=== PATIENT | male | born 2005 | race Caucasian/White ===

== ENCOUNTER 2025-01-18 08:33 | Outpatient (AMB) | payer BC, SELFPAY ==
--- NOTE | 2025-01-18 08:34 | MHC.PC.OV ---
Vital Signs 01/18/25 08:41 Height 5 ft 10.2 in Weight 185 lb 2 oz BMI 26.4 BP 133/69 Blood Pressure Location Lt brachial Position Sitting Respiration 16 Pulse 75 Pulse Source Pulse Oximeter Temp 98.1 F Temp Source Temporal Artery Scan Pulse Oximetry (%) 96 Oxygen Delivery Method Room Air Intake Visit Reasons: Est Care Accompanied by: Self / Same As Patient Allergies No Known Allergies Allergy (Verified 01/18/25 08:35) Tobacco use date assessed: 01/18/25 Dental Screening Dental Screen Date: 01/18/25 Did you have a dental visit in the last 12 months?: Yes [facility] Medical History (Updated 01/18/25 @ 08:56 by Burak Harvey MD) Major depression in complete remission Bronchial asthma Family History (Updated 01/18/25 @ 08:40 by Mercedes Wu [facility]) Mother Diabetes Father No problems noted. Social History (Reviewed 01/18/25 @ 08:39 by Mercedes Wu [facility]) Housing: House Patient Tobacco Use Status: Never used Tobacco service: No Current occupational status: student Cognitive needs: No Hearing needs: No Vision needs: No Questionnaire PHQ-9 Over the last 2 weeks, how often have you been bothered by any of the following problems? 1. Little interest or pleasure in doing things: not at all 2. Feeling down, depressed, or hopeless: not at all 3. Trouble falling or staying asleep, or sleeping too much: not at all 4. Feeling tired or having little energy: not at all 5. Poor appetite or overeating: not at all 6. Feeling bad about yourself - or that you are a failure or have let yourself or your family down: not at all 7. Trouble concentrating on things, such as reading the newspaper or watching television: not at all 8. Moving or speaking so slowly that other people could have noticed. Or the opposite - being so fidgety or restless that you have been moving around a lot more than usual: not at all 9. Thoughts that you would be better off or of hurting yourself in some way: not at all Total score: 0 Source: Developed by Drs. Ralph Blanchard, Alejandra Gaytan, Maximiliano Aggarwal and colleagues, with an educational daisy from [employer]. Thrive Questionnaire Date Thrive assessed: 01/18/25 I am a: Patient What is your living situation today?: I have a steady place to live Within the past 12 months, did the food you bought not last and you didn't have the money to get more?: Never true Within the past 12 months, did you worry whether your food would run out before you got money to buy more?: Never true Do you have trouble paying for medicines?: No Do you have trouble getting transportation to medical appointments?: No Do you have trouble paying your heating and electricity bill?: No Do you have trouble taking care of your child, family member or friend?: No Do you have trouble with day-to-day activities such as bathing, preparing meals, shopping, managing finances, etc.?: No Are you currently unemployed and looking for a job?: No Are you interested in more education?: No Please select the resources that you would like help with: None THRIVE Score: 0 AUDIT C Alcohol Use Questionnaire (AUDIT-C) 1. How often do you have a drink containing alcohol?: Never Total Score: 0 FRANK-7 AMB Questionnaire FRANK-7 Date FRANK - 7 assessed: 01/18/25 Feeling nervous, anxious, or on edge: 0 = Not at all Not being able to stop or control worryin = Not at all Worrying too much about different things: 0 = Not at all Trouble relaxin = Not at all Being so restless that it is hard to sit still: 0 = Not at all Becoming easily annoyed or irritable: 0 = Not at all Feeling afraid as if something awful might happen: 0 = Not at all Total FRANK-7 score (0-4 normal; 5-9 mild; 10-14 moderate; 15-21 severe): 0 Source: Developed by Drs. Ralph Blanchard, Alejandra Gaytan, Maximiliano Aggarwal and colleagues, with an educational daisy from [employer]. Physical exam (Primary Care) Vital Signs: Last Vital Signs Temp 98.1 F 01/18/25 08:41 Pulse 75 01/18/25 08:41 Resp 16 01/18/25 08:41 BP 133/69 01/18/25 08:41 Pulse Ox 96 01/18/25 08:41 Oxygen Delivery Method Room Air 01/18/25 08:41 BMI result Body Mass Index 26.4 Tobacco/Smoking Status: Tobacco use Status Tobacco use date assessed 01/18/25 01/18/25 08:43 Patient Tobacco Use Status Never used Tobacco 01/18/25 08:43 PHQ-9: PHQ-9 Score PHQ-9: Total score 0 01/18/25 08:58 Thrive Assessment: Date of Thrive Assessment Date Thrive assessed 01/18/25 01/18/25 08:43 Office Procedures Flu Questionnaire Does the patient have a severe egg allergy?: No Does the patient have severe life threatening allergies?: No Does the patient have a fever or illness today?: No Has the patient ever had Guillain-[place] Syndrome?: No Has the patient ever had any past reaction to a flu shot?: No Immunizations Fluarix [id number] (PF) 45 mcg (15 mcg x 3)/0.5 mL IM syringe Performing Provider: Burak Harvey MD [facility] Administered by: MERCED Chamberlain on 01/18/25 08:58 Dose Route Admin Location Dispensed Lot Number Expiration Date NDC Physical Instructor 0.5 mL IM Left Deltoid 0.5 mL [id number] 10/18/25 [id number] Codingpeople VIS Given Date VIS Provided VIS Publication Date 01/18/25 Single Vaccine 24 Eligibility Eligibility Date Funding Source Not [facility] Eligible 01/18/25 Private Coding Level of Care Code New Pt Level 4 (95606) Complex EM visit Add On G2211 Diagnoses Major depression in complete remission F32.5 Bronchial asthma J45.909 Assessment & Plan Assessment & Plan (1) Major depression in complete remission: Code(s): F32.5 - Major depressive disorder, single episode, in full remission Category: Medical Plan: Continue current medication (2) Bronchial asthma: Code(s): J45.909 - Unspecified asthma, uncomplicated Category: Medical Plan: History of Present Illness - The patient is a 19-year-old male presenting with breathing difficulties. - Reports dyspnea on exertion, particularly when walking across campus, which was not previously problematic during athletic activities. - Denies significant wheezing but feels out of breath. - No prior history of asthma or inhaler use. - Currently on bupropion for anxiety, prescribed by Alison Joe. - Denies smoking or marijuana use; reports mild seasonal allergies. 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 - He has a history of being athletic, participating in [employer] - Denies use of tobacco or marijuana. Review of Systems - Respiratory: Reports dyspnea on exertion. Denies significant wheezing. - Allergic/Immunologic: Reports occasional mild seasonal allergies. Physical Exam General: Cooperative and healthy appearing Nutritional Appearance: Well nourished Orientation/consciousness: Patient oriented x3 Limitations: No limitations Head: Normal to inspection General: Appearance normal, both eyes and all related structures Neck: Normal visual inspection Chest: Normal palpation of entire chest wall Respiratory: Wheezing noted, possible asthma diagnosis. Chest X-ray and pulmonary function test recommended. ormal respiratory effort Neurology: Patient oriented x3 Results Plan - Perform a chest x-ray to evaluate heart size and exclude other conditions. - Conduct pulmonary function tests to confirm asthma diagnosis. - Initiate Symbicort treatment if asthma is confirmed, to be used as needed. - Schedule a follow-up in six weeks to discuss test outcomes and treatment progress. Discussion Notes I discussed with the patient the likelihood of asthma based on his symptoms and the need for further testing to confirm the diagnosis. We talked about the importance of a chest x-ray and pulmonary function tests to accurately diagnose the condition. I explained the potential use of Symbicort as a treatment option if asthma is confirmed. We also discussed scheduling a follow-up appointment in six weeks to review the results and adjust the treatment plan as necessary. Patient Instructions - Schedule and complete a chest x-ray and pulmonary function tests as soon as possible. - Use Symbicort as directed if asthma is confirmed. - Attend the follow-up appointment in six weeks to discuss test results and treatment. Orders: Orders XR chest 2V Today R05.9 - Cough, unspecified Liver Panel Today J45.909 - Unspecified asthma, uncomplicated Thyroid Stimulating Hormone Today J45.909 - Unspecified asthma, uncomplicated UA and rflx microscopic Today J45.909 - Unspecified asthma, uncomplicated Influenza [id number] Immunization Today Z23 - Encounter for immunization PFT pulmonary function test Today F32.5 - Major depressive disorder, single episode, in full remission, J45.909 - Unspecified asthma, uncomplicated Basic Metabolic Panel Today J45.909 - Unspecified asthma, uncomplicated Complete Blood Count no Diff Today J45.909 - Unspecified asthma, uncomplicated C Reactive Protein Today J45.909 - Unspecified asthma, uncomplicated Erythrocyte Sedimentation Rate Today J45.909 - Unspecified asthma, uncomplicated Medications: New budesonide-formoterol 80-4.5 mcg/actuation (Symbicort) 1 inh inhalation BID PRN 10.2 grams 1RF shortness of breath or wheezing
[2025-01-18 08:41] VITALS: BP 133/69; PULSE 75; RESP 16; TEMP 36.7; O2SAT 96; BMI 26.4
--- OUTSIDE RECORDS SUMMARY | 2025-01-18 08:51 | XMS_ITS | Encounter Summary ---
Author Organization [facility] Address [address] [place] [address] Phone Care Team Providers Care Foreign Language Teacher Name Role Phone Fercho Key MD Primary Care Provider [phone] Reason for Visit * Reason Comments Med Refill Encounter Details Date Type Department Care Team (Late st Contact Info) Description 10/26/2018 Refill [place] [place] [address] [place] [address] Qiun Jerry NP Anxiety Social History Tobacco Use Types Packs/Day Years Used Date Smoking Tobacco: Never Smokeless Tobacco: Never Comments:Never smoker Alcohol Use Standard Drinks/Week Comments No 0 (1 standard drink = 0.6 oz pur e alcohol) Sex and Gender Information Value Date Recorded Sex Assigned at Male 02/09/2020 9:55 AM EDT Legal Sex Male 5:23 PM EDT Gender Identity Male 02/09/2020 9:55 AM EDT Sexual Orientation Straight 02/09/2020 9: 55 AM EDT documented as of this encounter Plan of Treatment Not on file documented as of this encounter Visit Diagnoses Diagnosis Anxiety Anxiety state, unspecified documented in this encounter Care Teams Foreign Language Teacher Relationship Specialty Start Date End Date Fercho Key MD [address] [place] [address] PCP - General Pediatrics 10/24/20 documented as of this encounter
--- OUTSIDE RECORDS SUMMARY | 2025-01-18 08:51 | XMS_ITS | Encounter Summary ---
Author Organization [facility] Address [address] [place], [place] [id number] Phone Care Team Providers Care Non Destructive Testing Inspector Name Role Phone Fercho Key MD Primary Care Provider [phone] Encounter Details Date Type Department Care Team (Late st Contact Info) Description 05/14/2012 [place]ation [facility] [place] [address] [place] [address] Family Medicine, Physician [address] [place], [place] [phone] Social History Tobacco Use Types Packs/Day Years Used Date Smoking Tobacco: Never Assessed Sex and Gender Information Value Date Recorded Sex Assigned at Male 02/09/2020 9:55 AM EDT Legal Sex Male 5:23 PM EDT Gender Identity Male 02/09/2020 9:55 AM EDT Sexual Orientation Straight 02/09/2020 9: 55 AM EDT documented as of this encounter Plan of Treatment Not on file documented as of this encounter Visit Diagnoses Not on filedocumented in this encounter Care Teams Non Destructive Testing Inspector Relationship Specialty Start Date End Date Fercho Key MD [address] [place] [address] [place] [address] PCP - General Pediatrics 10/24/20 documented as of this encounter
--- OUTSIDE RECORDS SUMMARY | 2025-01-18 08:51 | XMS_ITS | Encounter Summary ---
Author Organization [facility] Address [address] [place], [place] [phone] Phone Care Team Providers Care Labor Economics Teacher Name Role Phone Fercho Key MD Primary Care Provider [phone] Encounter Details Date Type Department Care Team (Late st Contact Info) Description 12/17/2010 Documentation [facility] [place] Family Medicine [address] [place] [address] Family Medicine, Physician [address] [place], [place] [phone] Social History Tobacco Use Types Packs/Day Years [...] on filedocumented in this encounter Care Teams Labor Economics Teacher Relationship Specialty Start Date End Date Fercho Key MD [address] [place] [address] [place] [address] PCP - General Pediatrics 10/24/20 documented as of this encounter
--- OUTSIDE RECORDS SUMMARY | 2025-01-18 08:51 | XMS_ITS | Encounter Summary ---
Author Organization [facility] Address [address] [place], [place] [id number] Phone Care Team Providers Care Continuous Absorption Process Operator Name Role Phone Fercho Key MD Primary Care Provider [phone] Encounter Details Date Type Department Care Team (Late st Contact Info) Description 12/19/2009 Documentation [facility] [place] [address] [place] [address] Family Medicine, Physician [address] [place], [place] [phone] Social History Tobacco Use Types Packs/Day Years [...] on filedocumented in this encounter Care Teams Continuous Absorption Process Operator Relationship Specialty Start Date End Date Fercho Key MD [address] [place] [address] [place] [address] PCP - General Pediatrics 10/24/20 documented as of this encounter
--- OUTSIDE RECORDS SUMMARY | 2025-01-18 08:51 | XMS_ITS | Clinical Summary ---
Author Organization [facility] Address [address] [place], [place] [phone] Phone Care Team Providers Care Ssis Ssrs Developer Name Role Phone Fercho Key MD Primary Care Provider [phone] Allergies No known active allergies Medications buPROPion SR 150 MG 12 hr tablet Take 300 mg by mouth daily. 2 04/13/2019 Active Cetirizine HCl (ZYRTEC PO) Take 10 mg by mouth daily. Active clindamycin 1 % gelIndications: Acne vulgaris APPLY TO AFFECTED AREA AT NIGHT 30 g 3 05/16/2023 Active Active Problems Problem Noted Date Diagnosed Date Hip flexor tendonitis, unspecified laterality Overview (04/01/2023): 03/27/2023 [facility] for hip pain. Negative XRs. A/P hip flexor tendonitis - treatment options reviewed and plan for OTC meds and home flexor tendon stretching program with f/u in 1 month. Anxiety 01/27/2017 Overview (02/01/2020): 01/2020 [facility] med prescriber check in every 2 months Every 2 weeks for therapy Started on wellbutrrin - is on 300mg daily 01/2019 Sees a new med prescriber and therapist Doing well Weaning off medications Hopes to be off by the end of January Medication suggestions for new tx if needed was wellbutrin 01/2018 Ivette Meehan - in [place] manages medications, Still tweaking medications dosing and choices per mom, Still seeing Airam Hester for weekly therapy - 2 years established relationship, No new changes or issues with symptoms Assessment & Plan (02/09/2020 9:51 AM EDT): Continue in current treatment plan and follow up here if needed with additional concerns or questions. Assessment & Plan (01/29/2019 6:05 PM EDT): 01/2019 Beginning to taper medication. Patient reports improvement in sleep since starting taper. Continue to follow with therapist and med prescriber. Return to the office here with other changes or concerns. Assessment & Plan (01/28/2018 9:16 AM EDT): Continue in therapy and medication management. More worrisome mood or sleep changes to watch for reviewed, follow up with psych providers or here if needed with additional concerns. Immunizations Immunization Administration Dates Next Due COVID-19 Pfizer, bivalent, 12+ years 04/18/2022 COVID-19 Vaccine Moderna, se asonal, 12+ years 06/22/2024 DTaP / Hep B / IPV 2004,2004, 004 DTaP 5 02/08/2008,08/09/2005 H1N1 05/05/2009,02/06/2009 HPV Vaccine 9 Valent 01/29/2019,01/27/2018 Hep A, ped/adol 01/24/2015,01/25/2014 Hep B, ped/adol 2004 Hib (HbOC) 2004,2004,2004 Hib (PRP-T) 05/07/2005 IPV 02/08/2008 Influenza, injectable, MDCK, preservative free, quadrivalent 04/18/2023 Influenza, injectable, quadrivalent 02/02/2016 Influenza, injectable, quadr ivalent, preservative free 04/18/2022,02/01/2021,02/01/2020,01/29,01/27/2018,01/24/2017 Influenza, injectable, trivalent 009,02/08/2008,02/05/2007,02/20,05/07/2005 Influenza, injectable, triva lent, preservative free 06/22/2024 Influenza, intranasal, quadrivalent 01/24/2015,1 ,02/02/2013 Influenza, intranasal, trivalent 01/28/2012,01/20,01/17/2010 MMR 02/08/2008,01/29/2005 Meningococcal B Trumenba 06/10/2023,04/18/2022 Meningococcal Conj (Menactra) MCV4P 02/01/2020,1 Pneumococcal Conjugate 05/07/2005,2004,2004,04/05 Tdap 01/24/2015 Varicella 02/08/2008,01/29/2005 Family History Medical History Relation Name Comments Diabetes Mother Fernando Cisneros Thyroid disease Mother Fernando Cisneros No Known Problems Sister Aracelis Cisneros Relation Name Status Comments Father Shalonda Cisneros Alive Father: Ese jay and well Mother Fernando Cisneros Alive 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 Other No family histo ry of Strabismus, No family history of *Dental caries, No family history of ADD/ADHD, No family history of Seizure disorder, No family history of Developmental dislocation of hip, No family history of Obesity, Family history of Asthma, No family history of Diabetes mellitus, No family history of Deafness, No family history of *Heart Disease, No family history of Hyperlipidemia, No family history of Cancer, Family history of Migraines, No family history of *CVA/Stroke, No family history of *Sudden /SD under 55 Sister Aracelis Cisneros Alive Sister: Rehan andrae and well Social History Tobacco Use Types Packs/Day Years Used Date Smoking Tobacco: Never Smokeless Tobacco: Never Tobacco Cessation:Counseling Given: Yes Comments:Never smoker Alcohol Use Standard Drinks/Week Comments No 0 (1 standard drink = 0.6 oz pur e alcohol) Hunger/Food Answer Date Recorded In the last 12 months, did y ou or your family ever eat less than you felt you should because there wasn't enough money for food? No 06/10/2023 Stable Housing Answer Date Recorded Are you worried that in the next 2 months you may not have stable housing? No 06/10/2023 Transportation Concerns Answer Date Rec orded In the last 12 months, have you or your family ever had to go without healthcare because you didn't have a way to get there? No 06/10/2023 Hazards in Home Answer Date Recorded Think about the place you li ve. Do you have problems with any of the following? Pests (mice or roaches), mold, no/not working smoke detectors, water leaks, no window guards. No 2023 Financing Utilities Answer Date Recorde d In the last 12 months, has t he electric, gas, oil, or water company threatened to shut off your services in your home? No 06/10/2023 Safety at Home Answer Date Recorded Are you or your family worried about feeling saf e in your home? No 06/10/2023 Outside Support Answer Date Recorded Do you feel that you need mo re support from other people or programs to help you care for yourself or your family? No 06/10/2023 Understanding Health Concerns Answer Da te Recorded Do you need help understandi ng your or your child's healthcare needs (diagnosis, medications, plan, etc.)? No 06/10/2023 Financing Health Concerns Answer Date R ecorded In the last 12 months, was t here a time when your child needed to see a doctor or get medications or supplies but could not because of cost? No 06/10/2023 Missing School or Work Answer Date Nito rded Did you or your child miss s chool or work because of a health problem that could have been avoided? No 06/10/2023 Sex and Gender Information Value Date Recorded Sex Assigned at Male 02/09/2020 9:55 AM EDT Legal Sex Male 5:23 PM EDT Gender Identity Male 02/09/2020 9:55 AM EDT Sexual Orientation Straight 02/09/2020 9: 55 AM EDT Last Filed Vital Signs Vital Sign Reading Time Taken Comments Blood Pressure 120/75 06/22/2024 9:59 AM EST Pulse 74 06/22/2024 9:59 AM EST Temperature 36.4 C (97.5 F) 06/22/2024 9:59 AM EST Respiratory Rate - - Oxygen Saturation 98% 05/12/2017 9:22 AM EST Inhaled Oxygen Concentration - - Weight 75.2 kg (165 lb 12.8 oz) 06/22/2024 9:59 AM EST Height 177.8 cm (5' 10 ) 06/22/2024 9:59 AM EST Body Mass Index 23.79 06/22/2024 9:59 AM EST Plan of Treatment Health Maintenance Due Date Last Done Comments HIV Screening 01/22/2019 Hepatitis C Screening 01/22/2022 Influenza Vaccines (#1) 2024 06/23/19, 04/18/2023, 04/18/2022, Additional history exists COVID-19 Vaccine (7 - 2024-2 6 season) 2024 06/22/2024, 04/18/2023, 04/18/2022, Additional history exists DTaP,Tdap,and Td Vaccines (7 - Td or Tdap) 01/24/2025 01/24/2015, 02/08/2008, 08/09/2005, Additional history exists Hepatitis B Vaccines Completed 2004, 2004, 2004, Additional history exists HIB Vaccines Completed 05/07/2005, 10/2004, 2004, Additional history exists Pneumococcal Vaccine Completed 05/07/2005, 2004, 2004, Additional history exists IPV Vaccines Completed 02/08/2008, 10/2004, 2004, Additional history exists MMR Vaccines Completed 02/08/2008, 01/29/2005 Varicella Vaccines Completed 02/08/2008, 01/29/2005 Hepatitis A Vaccines Completed 01/24/2015, 01/26/20 14 HPV Vaccines Completed 01/29/2019, 01/27/2018 Meningococcal Vaccine Completed 02/01/2020, 015 Men B Vaccine Completed 06/10/2023, 04/18/2022 Insurance [facility] H[facility] Care Teams Ssis Ssrs Developer Relationship Specialty Start Date End Date Fercho Key MD [address] [facility] [place] [address] PCP - General Pediatrics 10/24/20
--- OUTSIDE RECORDS SUMMARY | 2025-01-18 08:51 | XMS_ITS | Encounter Summary ---
Author Organization [facility] Address [address] [place] [address] Phone Care Team Providers Care Membership Counselor Name Role Phone Fercho Key MD Primary Care Provider [phone] Encounter Details Date Type Department Care Team (Late st Contact Info) Description 12/05/2016 Conversion Encounter [facility] [place] [address] [place] [address] Social History Tobacco Use Types Packs/Day Years Used Date Smoking Tobacco: Never Comments:Never smoker Sex and Gender Information Value Date Recorded Sex Assigned at Male 02/09/2020 9:55 AM EDT Legal Sex Male 5:23 PM EDT Gender Identity Male 02/09/2020 9:55 AM EDT Sexual Orientation Straight 02/09/2020 9: 55 AM EDT documented as of this encounter Plan of Treatment Not on file documented as of this encounter Visit Diagnoses Not on filedocumented in this encounter Care Teams Membership Counselor Relationship Specialty Start Date End Date Fercho Key MD [address] [place] [address] PCP - General Pediatrics 10/24/20 documented as of this encounter
--- OUTSIDE RECORDS SUMMARY | 2025-01-18 08:51 | XMS_ITS | Encounter Summary ---
Author Organization [facility] Address [address] [place] [address] Phone Care Team Providers Care Front End Driver Name Role Phone Fercho Key MD Primary Care Provider [phone] Encounter Details Date Type Department Care Team (Late st Contact Info) Description 02/16/2010 Documentation [facility] [place] Family Medicine [address] [place] [address] Family Medicine, Physician [address] [place], [place] [phone] Social History Tobacco Use Types Packs/Day Years [...] on filedocumented in this encounter Care Teams Front End Driver Relationship Specialty Start Date End Date Fercho Key MD [address] [place] [address] [place] [address] PCP - General Pediatrics 10/24/20 documented as of this encounter
--- OUTSIDE RECORDS SUMMARY | 2025-01-18 08:51 | XMS_ITS | Encounter Summary ---
Author Organization [facility] Address [address] [place] [address] Phone Care Team Providers Care Front Office Secretary Name Role Phone Fercho Key MD Primary Care Provider [phone] Encounter Details Date Type Department Care Team (Late st Contact Info) Description 11/08/2016 Documentation [facility] [place] Family Medicine [address] [place] [address] Family Medicine, Physician [address] [place], [place] [phone] Social History Tobacco Use Types Packs/Day Years [...] filedocumented in this encounter Care Teams Front Office Secretary Relationship Specialty Start Date End Date Fercho Key MD [address] [place] [address] [place] [address] PCP - General Pediatrics 10/24/20 documented as of this encounter
--- OUTSIDE RECORDS SUMMARY | 2025-01-18 08:51 | XMS_ITS | Encounter Summary ---
Author Organization [facility] Address [address] [place], [place] [address] Phone Care Team Providers Care Wildland Fire Operations Specialist Name Role Phone Fercho Key MD Primary Care Provider [phone] Encounter Details Date Type Department Care Team (Late st Contact Info) Description 06/27/2009 Documentation [facility] [place] Family Medicine [address] [place] [address] Family Medicine, Physician [address] [place], [place] [phone] Social History Tobacco Use Types Packs/Day Years [...] on filedocumented in this encounter Care Teams Wildland Fire Operations Specialist Relationship Specialty Start Date End Date Fercho Key MD [address] [place] [address] [place] [address] PCP - General Pediatrics 10/24/20 documented as of this encounter
--- OUTSIDE RECORDS SUMMARY | 2025-01-18 08:51 | XMS_ITS | Encounter Summary ---
Author Organization [facility] Address [address] [place], [place] [address] Phone Care Team Providers Care Broom Builder Name Role Phone Fercho Key MD Primary Care Provider [phone] Encounter Details Date Type Department Care Team (Late st Contact Info) Description 05/14/2012 Documentation [facility] [place] Family Medicine [address] [place] [address] Family Medicine, Physician [address] [place], [place] [phone] Social History Tobacco Use Types Packs/Day Years [...] on filedocumented in this encounter Care Teams Broom Builder Relationship Specialty Start Date End Date Fercho Key MD [address] [place] [address] [place] [address] PCP - General Pediatrics 10/24/20 documented as of this encounter
== END 2025-01-18 08:59 | disposition home or self-care (01) ==
LOC: HO.HMCSH 08:33
PROVIDERS: PCP Internal Medicine; Visit Provider Internal Medicine
DX: F32.5 Major depressive disorder, single episode, in full remission (principal); J45.909 Unspecified asthma, uncomplicated; Z23 Encounter for immunization

== ENCOUNTER → 2025-01-18 08:33 | Outpatient (BNVA) | payer BC, SELFPAY | PROVIDERS: PCP Internal Medicine; Visit Provider Internal Medicine | DX: F32.5 Major depressive disorder, single episode, in full remission (principal); R05.9 Cough, unspecified; J45.909 Unspecified asthma, uncomplicated; Z23 Encounter for immunization | CPT/HCPCS: 90471; 90656 ==

== ENCOUNTER 2025-01-20 08:55 | Outpatient (REF) | payer BC, SELFPAY ==
--- NOTE | ~2025-01-20 | XR_ITS ---
EXAMINATION: XR CHEST CLINICAL INFORMATION: R05.9 - Cough, unspecified COMPARISON: None available. TECHNIQUE: 2 views of the chest were obtained. FINDINGS: The cardiac, hilar, and mediastinal contours are normal. The lungs are clear bilaterally. There is no pneumothorax or pleural effusion. There is no focal osseous or soft tissue abnormality. XR/XR chest 2V IMPRESSION: Normal chest. Electronically signed by: Sanju Healy MD 01/20/2025 09:19 AM EDT
--- OUTSIDE RECORDS SUMMARY | 2025-01-20 09:34 | XMS_ITS | Encounter Summary ---
Author Organization [facility] Address [address] [place], [place] [address] Phone Care Team Providers Care Field Adjuster Name Role Phone Fercho Key MD Primary Care Provider [phone] Encounter Details Date Type Department Care Team (Late st Contact Info) Description 05/14/2012 Documentation [facility] [place] Family Medicine [address] [place] [address] Family Medicine, Physician [address] [place], [place] [phone] Social History Tobacco Use Types Packs/Day Years [...] on filedocumented in this encounter Care Teams Field Adjuster Relationship Specialty Start Date End Date Fercho Key MD [address] [place] [address] [place] [address] PCP - General Pediatrics 10/24/20 documented as of this encounter
--- OUTSIDE RECORDS SUMMARY | 2025-01-20 09:34 | XMS_ITS | Encounter Summary ---
Author Organization [facility] Address [address] [place] [address] Phone Care Team Providers Care Banking Paralegal Name Role Phone Fercho Key MD Primary Care Provider [phone] Encounter Details Date Type Department Care Team (Late st Contact Info) Description 02/16/2010 Documentation [facility] [place] Family Medicine [address] [place] [address] Family Medicine, Physician [address] [place], [place] [phone] Social History Tobacco Use Types Packs/Day Years [...] on filedocumented in this encounter Care Teams Banking Paralegal Relationship Specialty Start Date End Date Fercho Key MD [address] [place] [address] [place] [address] PCP - General Pediatrics 10/24/20 documented as of this encounter
--- OUTSIDE RECORDS SUMMARY | 2025-01-20 09:34 | XMS_ITS | Encounter Summary ---
Author Organization [facility] Address [address] [place], [place] [address] Phone Care Team Providers Care Precision Dyer Name Role Phone Fercho Key MD Primary Care Provider [phone] Encounter Details Date Type Department Care Team (Late st Contact Info) Description 06/27/2009 Documentation [facility] [place] [address] [place] [address] Family Medicine, Physician [address] [place], [place] [phone] Social History Tobacco Use Types Packs/Day Years [...] on filedocumented in this encounter Care Teams Precision Dyer Relationship Specialty Start Date End Date Fercho Key MD [address] [place] [address] [place] [address] PCP - General Pediatrics 10/24/20 documented as of this encounter
--- OUTSIDE RECORDS SUMMARY | 2025-01-20 09:34 | XMS_ITS | Encounter Summary ---
Author Organization [facility] Address [address] [place] [address] Phone Care Team Providers Care Floral Designer Name Role Phone Fercho Key MD Primary Care Provider [phone] Encounter Details Date Type Department Care Team (Late st Contact Info) Description 12/05/2016 Conversion Encounter [facility] [place] [address] [place] [address] Social History Tobacco Use Types Packs/Day Years [...] on filedocumented in this encounter Care Teams Floral Designer Relationship Specialty Start Date End Date Fercho Key MD [address] [place] [address] PCP - General Pediatrics 10/24/20 documented as of this encounter
--- OUTSIDE RECORDS SUMMARY | 2025-01-20 09:34 | XMS_ITS | Encounter Summary ---
Author Organization [facility] Address [address] [place], [place] [address] Phone Care Team Providers Care Area Development Consultant Name Role Phone Fercho Key MD Primary Care Provider [phone] Encounter Details Date Type Department Care Team (Late st Contact Info) Description 12/19/2009 Documentation [facility] [place] Family Medicine [address] [place] [address] Family Medicine, Physician [address] [place], [place] [phone] Social History Tobacco Use Types Packs/Day Years [...] on filedocumented in this encounter Care Teams Area Development Consultant Relationship Specialty Start Date End Date Fercho Key MD [address] [place] [address] [place] [address] PCP - General Pediatrics 10/24/20 documented as of this encounter
--- OUTSIDE RECORDS SUMMARY | 2025-01-20 09:34 | XMS_ITS | Clinical Summary ---
Author Organization [facility] Address [address] [place], [place] [address] Phone Care Team Providers Care Painter Decorator Name Role Phone Fercho Key MD Primary Care Provider [phone] Allergies No known active allergies Medications buPROPion [...] 1 month. Anxiety 01/27/2017 Overview (02/01/2020): 01/2020 [facility] med prescriber check in every 2 months Every 2 weeks for therapy Started on wellbutrrin - is on 300mg daily 01/2019 Sees a new med prescriber and therapist Doing well Weaning off medications Hopes to be off by the end of January Medication suggestions for new tx if needed was wellbutrin 01/2018 Ivette Meehan - in [place] manages medications, Still tweaking medications dosing and [...] History Relation Name Comments Diabetes Mother Fernando Cisnreos Thyroid disease Mother Fernando Cisneros No Known Problems Sister Aracelis Cisneros Relation Name Status Comments Father Shalonda Cisneros Alive Father: Ese jay and well Mother Fernando Cisneros Alive 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 [place] [address] PCP - General Pediatrics 10/24/20
--- OUTSIDE RECORDS SUMMARY | 2025-01-20 09:34 | XMS_ITS | Encounter Summary ---
Author Organization [facility] Address [address] [place] [address] Phone Care Team Providers Care Health Program Director Name Role Phone Fercho Key MD Primary Care Provider [phone] Encounter Details Date Type Department Care Team (Late st Contact Info) Description 11/08/2016 Documentation [facility] [place] [address] [place] [address] Family Medicine, Physician [address] [place], [place] [phone] Social History Tobacco Use Types Packs/Day Years [...] on filedocumented in this encounter Care Teams Health Program Director Relationship Specialty Start Date End Date Fercho Key MD [address] [place] [address] [place] [address] PCP - General Pediatrics 10/24/20 documented as of this encounter
--- OUTSIDE RECORDS SUMMARY | 2025-01-20 09:34 | XMS_ITS | Encounter Summary ---
Author Organization [facility] Address [address] [place], [place] [address] Phone Care Team Providers Care Assistant Signal Maintainer Name Role Phone Fercho Key MD Primary Care Provider [phone] Encounter Details Date Type Department Care Team (Late st Contact Info) Description 05/14/2012 Documentation [facility] [place] Family Medicine [address] [place] [address] Family Medicine, Physician [address] [place], [place] [phone] Social History Tobacco Use Types Packs/Day Years [...] on filedocumented in this encounter Care Teams Assistant Signal Maintainer Relationship Specialty Start Date End Date Fercho Key MD [address] [place] [address] [place] [address] PCP - General Pediatrics 10/24/20 documented as of this encounter
--- OUTSIDE RECORDS SUMMARY | 2025-01-20 09:34 | XMS_ITS | Encounter Summary ---
Author Organization [facility] Address [address] [place], [place] [address] Phone Care Team Providers Care Floor Nurse Name Role Phone Fercho Key MD Primary Care Provider [phone] Encounter Details Date Type Department Care Team (Late st Contact Info) Description 12/17/2010 Documentation [facility] [place] Family Medicine [address] [place] [address] Family Medicine, Physician [address] [place], [place] [phone] Social History Tobacco Use Types Packs/Day Years [...] on filedocumented in this encounter Care Teams Floor Nurse Relationship Specialty Start Date End Date Fercho Key MD [address] [place] [address] [place] [address] PCP - General Pediatrics 10/24/20 documented as of this encounter
--- OUTSIDE RECORDS SUMMARY | 2025-01-20 09:34 | XMS_ITS | Encounter Summary ---
Author Organization [facility] Address [address] [place] [address] Phone Care Team Providers Care Supervisor Molding Name Role Phone Fercho Key MD Primary Care Provider [phone] Reason for Visit * Reason Comments Med Refill Encounter Details Date Type Department Care Team (Late st Contact Info) Description 10/26/2018 Refill [facility] [address] [place] [address] Quin Jerry NP Anxiety Social History Tobacco Use [...] unspecified documented in this encounter Care Teams Supervisor Molding Relationship Specialty Start Date End Date Fercho Key MD [address] [place] [address] PCP - General Pediatrics 10/24/20 documented as of this encounter
[2025-01-20 10:24] LABS: Appearance Urine Clear; Glucose Urine UA Negative (Negative); PH 7.0 (5.0-9.0); Specific Gravity - Urine 1.020 (1.005-1.025)
[2025-01-20 10:43] LABS: Hematocrit 45.3 % (42.0-52.0); Hemoglobin 16.1 g/dl (14.0-18.0); Mean Corpuscular HGB Conc 35.5 g/dl (31.0-36.0); Mean Corpuscular Hemoglobin 30.8 pg (27.0-33.0); Mean Corpuscular Volume 86.8 fL (80.0-98.0); NRBC Abs Auto 0.000 X10*3/uL (0.0-0.012); NRBC Pct Auto 0.0 /100WBC (0.0-0.2); Platelet Count 306 X10*3/uL (160-400); Red Blood Count 5.22 X10*6/uL (4.60-5.80); White Blood Count 5.3 X10*3/uL (4.8-10.8)
[2025-01-20 13:47] LABS: Alanine Aminotransferase 27 U/L (0-40); Albumin Level 4.8 g/dL (3.5-5.0); Alkaline Phosphatase 73 U/L (39-117); Anion Gap 9 (12-20); Aspartate Amino Transferase 26 U/L (5-37); Blood Urea Nitrogen 19 mg/dL (9-16); Calcium 9.2 mg/dL (8.4-10.2); Carbon Dioxide 28 mmol/L (22-29); Chloride 106 mmol/L (96-108); Estimated Glomerular Filt Rate > 60; Potassium 4.4 mmol/L (3.3-5.1); Sodium 139 mmol/L (135-145); Total Protein 7.3 g/dL (6.5-8.0)
[2025-01-20 14:05] LABS: Thyroid Stimulating Hormone 3.77 uIU/mL (0.32-4.0)
== END 2025-01-20 08:56 | disposition home or self-care (01) ==
LOC: HO.HMGCX 08:55
PROVIDERS: PCP Internal Medicine; Visit Provider Internal Medicine
DX: J45.909 Unspecified asthma, uncomplicated (principal); R05.9 Cough, unspecified; Z13.29 Encounter for screening for other suspected endocrine disorder
CPT/HCPCS: 36415; 71046; 80048; 80076; 81003; 84443; 85027; 85652; 86140

== ENCOUNTER → 2025-01-20 09:00 | Outpatient (BNV) | payer BC, SELFPAY | PROVIDERS: PCP Internal Medicine; Visit Provider Radiology Diagnostic Radiology | DX: R05.9 Cough, unspecified (principal) | CPT/HCPCS: 71046 ==

== ENCOUNTER 2025-02-15 08:29 | Outpatient (AMB) | payer BC, SELFPAY ==
--- NOTE | 2025-02-15 08:32 | A.OFFPC_ITS ---
Vital Signs 02/15/25 08:37 Weight 185 lb BP 120/62 Blood Pressure Location Rt brachial Pulse 80 Pulse Source Pulse Oximeter Temp 97.9 F Pulse Oximetry (%) 99 Intake Visit Reasons: 1 month follow up Intake Note: blood work is off would like to discuss and didn't have tests done yet have not heard about appointment. Allergies No Known Allergies Allergy (Verified 02/15/25 08:33) Tobacco use date assessed: 01/18/25 Dental Screening Dental Screen Date: 01/18/25 [facility] Medical History (Updated 01/18/25 @ 08:56 by Burak Harvey MD) Major depression in complete remission Bronchial asthma Family History (Updated 01/18/25 @ 08:40 by Mercedes Wu [facility]) Mother Diabetes Father No problems noted. Social History Housing: House Patient Tobacco Use Status: Never used Tobacco service: No Current occupational status: student Cognitive needs: No Hearing needs: No Vision needs: No Questionnaire PHQ-9 Over the last 2 weeks, how often have you been bothered by any of the following problems? 1. Little interest or pleasure in doing things: not at all 2. Feeling down, depressed, or hopeless: not at all 3. Trouble falling or staying asleep, or sleeping too much: not at all 4. Feeling tired or having little energy: not at all 5. Poor appetite or overeating: not at all 6. Feeling bad about yourself - or that you are a failure or have let yourself or your family down: not at all 7. Trouble concentrating on things, such as reading the newspaper or watching television: not at all 8. Moving or speaking so slowly that other people could have noticed. Or the opposite - being so fidgety or restless that you have been moving around a lot more than usual: not at all 9. Thoughts that you would be better off or of hurting yourself in some way: not at all Total score: 0 Source: Developed by Drs. Ralph Blanchard, Alejandra Gaytan, Maximiliano Aggarwal and colleagues, with an educational daisy from [employer]. Thrive Questionnaire Date Thrive assessed: 01/18/25 I am a: Patient What is your living situation today?: I have a steady place to live Within the past 12 months, did the food you bought not last and you didn't have the money to get more?: Never true Within the past 12 months, did you worry whether your food would run out before you got money to buy more?: Never true Do you have trouble paying for medicines?: No Do you have trouble getting transportation to medical appointments?: No Do you have trouble paying your heating and electricity bill?: No Do you have trouble taking care of your child, family member or friend?: No Do you have trouble with day-to-day activities such as bathing, preparing meals, shopping, managing finances, etc.?: No Are you currently unemployed and looking for a job?: No Are you interested in more education?: No Please select the resources that you would like help with: None THRIVE Score: 0 FRANK-7 AMB Questionnaire FRANK-7 Date FRANK - 7 assessed: 01/18/25 Feeling nervous, anxious, or on edge: 0 = Not at all Not being able to stop or control worryin = Not at all Worrying too much about different things: 0 = Not at all Trouble relaxin = Not at all Being so restless that it is hard to sit still: 0 = Not at all Becoming easily annoyed or irritable: 0 = Not at all Feeling afraid as if something awful might happen: 0 = Not at all Total FRANK-7 score (0-4 normal; 5-9 mild; 10-14 moderate; 15-21 severe): 0 Source: Developed by Drs. Ralph Blanchard, Alejandra Gaytan, Maximiliano Aggarwal and colleagues, with an educational daisy from [employer]. Physical exam (Primary Care) Vital Signs: Last Vital Signs Temp 97.9 F 02/15/25 08:37 Pulse 80 02/15/25 08:37 BP 120/62 02/15/25 08:37 Pulse Ox 99 02/15/25 08:37 Tobacco/Smoking Status: Tobacco use Status Tobacco use date assessed 01/18/25 02/15/25 08:37 Patient Tobacco Use Status Never used Tobacco 02/15/25 08:37 PHQ-9: PHQ-9 Score PHQ-9: Total score 0 10/28/25 08:37 Thrive Assessment: Date of Thrive Assessment Date Thrive assessed 01/18/25 02/15/25 08:37 Coding Level of Care Code Est Pt Level 4 (20728) Complex EM visit Add On G2211 Diagnoses Bronchial asthma J45.909 Assessment & Plan Assessment & Plan (1) Bronchial asthma: Code(s): J45.909 - Unspecified asthma, uncomplicated Category: Medical Plan: History of Present Illness - The patient is a 20-year-old male presenting with asthma and anxiety symptoms. - Asthma: Diagnosed previously, with normal chest x-ray and blood work. Inhaler prescribed but not filled due to concerns about anxiety exacerbation. - Generalized Anxiety Disorder: Diagnosed previously, with symptoms affecting breathing. Recent medication changes include starting mirtazapine and bupropion. - Bacterial Throat Infection: Occurred in October during vacation, treated at urgent care with no strep throat diagnosis. Persistent mild tonsillar erythema noted. Social History - Education: Currently a student with a busy schedule, including homework and classes. - Physical Activity: Participates in [employer], no other sports mentioned. Review of Systems - Respiratory: Reports dyspnea on exertion, denies chest pain. - Psychiatric: Reports anxiety affecting breathing, denies depression. - ENT: Reports sensation in throat, denies difficulty swallowing. Physical Exam General: Cooperative and healthy appearing Nutritional Appearance: Well nourished Orientation/consciousness: Patient oriented x3 Limitations: No limitations Head: Normal to inspection General: Appearance normal, both eyes and all related structures Neck: Normal visual inspection Chest: Normal palpation of entire chest wall Respiratory: Breathing better, no chest pain, awaiting pulmonary function test results. ormal respiratory effort Neurology: Patient oriented x3, diagnosed with generalized anxiety, currently on mirtazapine and bupropion. Results - Labs: Blood work normal. - Imaging: Chest x-ray normal. Plan - Await pulmonary function test results to determine necessity of inhaler for asthma management. - Continue current anxiety medications, monitor for effectiveness and side effects. - Monitor throat symptoms; consider ENT referral if symptoms persist. Discussion Notes I discussed with the patient the importance of completing the pulmonary function test to assess the need for an inhaler. We reviewed the current anxiety management plan, emphasizing the need to monitor medication effects. I advised monitoring throat symptoms and considering an ENT referral if they persist. Patient Instructions - Complete the pulmonary function test as scheduled. - Continue taking prescribed anxiety medications and report any side effects. - Monitor throat symptoms and seek further evaluation if they worsen.
[2025-02-15 08:37] VITALS: BP 120/62; PULSE 80; TEMP 36.6; O2SAT 99
--- OUTSIDE RECORDS SUMMARY | 2025-02-15 09:06 | XMS_ITS | Encounter Summary ---
Author Organization [facility] Address [address] [place] [address] Phone Care Team Providers Care Insole Department Worker Name Role Phone Fercho Key MD Primary Care Provider [phone] Encounter Details Date Type Department Care Team (Late st Contact Info) Description 06/27/[address] [facility] [place] Family Medicine [address] [place] [address] Family Medicine, Physician [address] [place], [place] [phone] Social History Tobacco Use Types Packs/Day Years [...] on filedocumented in this encounter Care Teams Insole Department Worker Relationship Specialty Start Date End Date Fercho Key MD [address] [facility] [place] [address] PCP - General Pediatrics 10/24/20 01/24/25 documented as of this encounter
--- OUTSIDE RECORDS SUMMARY | 2025-02-15 09:06 | XMS_ITS | Encounter Summary ---
Author Organization [facility] Address [address] [place] [address] Phone Care Team Providers Care Layout Former Name Role Phone Fercho Key MD Primary Care Provider [phone] Reason for Visit * Reason Comments Med Refill Encounter Details Date Type Department Care Team (Late st Contact Info) Description 10/26/2018 Refill [facility] [place] [address] [place] [address] Quin Jerry NP Anxiety Social History Tobacco [...] unspecified documented in this encounter Care Teams Layout Former Relationship Specialty Start Date End Date Fercho Key MD [address] [place] [address] PCP - General Pediatrics 10/24/20 01/24/25 documented as of this encounter
--- OUTSIDE RECORDS SUMMARY | 2025-02-15 09:06 | XMS_ITS | Encounter Summary ---
Author Organization [facility] Address [address] [place] [address] Phone Care Team Providers Care Button Machine Operator Name Role Phone Fercho Key MD Primary Care Provider [phone] Encounter Details Date Type Department Care Team (Late st Contact Info) Description 05/14/2012 Documentation [facility] [place] [address] [place] [address] Family Medicine, Physician [address] [place], [place] [phone] Social History Tobacco Use Types Packs/Day Years [...] on filedocumented in this encounter Care Teams Button Machine Operator Relationship Specialty Start Date End Date Fercho Key MD [address] [place] [address] [place] [address] PCP - General Pediatrics 10/24/20 01/24/25 documented as of this encounter
--- OUTSIDE RECORDS SUMMARY | 2025-02-15 09:06 | XMS_ITS | Encounter Summary ---
Author Organization [facility] Address [address] [place] [address] Phone Care Team Providers Care Ballet Soloist Name Role Phone Fercho Key MD Primary Care Provider [phone] Encounter Details Date Type Department Care Team (Late st Contact Info) Description 12/19/2009 Documentation [facility] [place] Family Medicine [address] [place] [address] Family Medicine, Physician [address] [place], [place] [phone] Social History Tobacco Use Types Packs/Day Years [...] on filedocumented in this encounter Care Teams Ballet Soloist Relationship Specialty Start Date End Date Fercho Key MD [address] [place] [address] [place] [address] PCP - General Pediatrics 10/24/20 01/24/25 documented as of this encounter
--- OUTSIDE RECORDS SUMMARY | 2025-02-15 09:06 | XMS_ITS | Encounter Summary ---
Author Organization [facility] Address [address] [place] [address] Phone Care Team Providers Care Academic Registrar Name Role Phone Fercho Key MD Primary Care Provider [phone] Encounter Details Date Type Department Care Team (Late st Contact Info) Description 05/14/2012 Documentation [facility] [place] [address] [place] [address] Family Medicine, Physician [address] [place], [place] [phone] Social History Tobacco Use Types Packs/Day Years [...] on filedocumented in this encounter Care Teams Academic Registrar Relationship Specialty Start Date End Date Fercho Key MD [address] [place] [address] [place] [address] PCP - General Pediatrics 10/24/20 01/24/25 documented as of this encounter
--- OUTSIDE RECORDS SUMMARY | 2025-02-15 09:06 | XMS_ITS | Encounter Summary ---
Author Organization [facility] Address [address] [place] [address] Phone Care Team Providers Care Tire And Tube Repairer Name Role Phone Fercho Key MD Primary Care Provider [phone] Encounter Details Date Type Department Care Team (Late st Contact Info) Description 12/05/2016 Conversion Encounter [facility] [place] [address] [place] [address] Social History Tobacco Use Types Packs/Day Years [...] on filedocumented in this encounter Care Teams Tire And Tube Repairer Relationship Specialty Start Date End Date Fercho Key MD [address] [place] [address] PCP - General Pediatrics 10/24/20 01/24/25 documented as of this encounter
--- OUTSIDE RECORDS SUMMARY | 2025-02-15 09:06 | XMS_ITS | Encounter Summary ---
Author Organization [facility] Address [address] [place] [address] Phone Care Team Providers Care Insulator Cutter And Former Name Role Phone Fercho Key MD Primary Care Provider [phone] Encounter Details Date Type Department Care Team (Late st Contact Info) Description 11/08/2016 Documentation [facility] [place] [address] [place] [address] Family Medicine, Physician [address] [place], [place] [id number] Social History Tobacco Use Types Packs/Day Years [...] on filedocumented in this encounter Care Teams Insulator Cutter And Former Relationship Specialty Start Date End Date Fercho Key MD [address] [place] [address] [place] [address] PCP - General Pediatrics 10/24/20 01/24/25 documented as of this encounter
--- OUTSIDE RECORDS SUMMARY | 2025-02-15 09:07 | XMS_ITS | Encounter Summary ---
Author Organization [facility] Address [address] [place] [address] Phone Care Team Providers Care Deputy Of Counter Intelligence Name Role Phone Fercho Key MD Primary Care Provider [phone] Encounter Details Date Type Department Care Team (Late st Contact Info) Description 12/17/2010 Documentation [facility] Family Medicine [address] [place] [address] Family Medicine, Physician [address] [place], [place] [phone] Social History Tobacco Use Types Packs/Day Years [...] on filedocumented in this encounter Care Teams Deputy Of Counter Intelligence Relationship Specialty Start Date End Date Fercho Key MD [address] [place] [place] [address] PCP - General Pediatrics 10/24/20 01/24/25 documented as of this encounter
--- OUTSIDE RECORDS SUMMARY | 2025-02-15 09:07 | XMS_ITS | Encounter Summary ---
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 Phone Fercho Key MD Primary Care Provider Encounter Details Date Type Department Care Team (Late st Contact Info) Description 02/16/2010 Documentation [facility] [place] [address] [place] [address] Family Medicine, Physician [address] [place], [place] [phone] Social History Tobacco Use Types Packs/Day Years [...] on filedocumented in this encounter Care Teams Paint Stripper Relationship Specialty Start Date End Date Fercho Key MD [address] [place] [address] [place] [address] PCP - General Pediatrics 10/24/20 01/24/25 documented as of this encounter
--- OUTSIDE RECORDS SUMMARY | 2025-02-15 09:07 | XMS_ITS | Clinical Summary ---
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 Anxiety 01/27/2017 Overview (02/01/2020): 01/2020 [facility] med prescriber check in every 2 months Every 2 weeks for therapy Started on wellbutrrin - is on 300mg daily 01/2019 Sees a new med prescriber and therapist Doing well Weaning off medications Hopes to be off by the end of January Medication suggestions for new tx if needed was wellbutrin 01/2018 Ivette Meehan - in [place] manages medications, Still tweaking medications dosing and [...] or here if needed with additional concerns. 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
== END 2025-02-15 08:58 | disposition home or self-care (01) ==
LOC: HO.HMCSH 08:29
PROVIDERS: PCP Internal Medicine; Visit Provider Internal Medicine
DX: J45.909 Unspecified asthma, uncomplicated (principal)